=== PATIENT | female | born 1975 | race Caucasian/White ===

== ENCOUNTER 2025-01-16 15:56 | Inpatient (IN) | payer OTHER ==
[2025-01-16 16:30] VITALS: BMI 18.3
[2025-01-16] MEDS ORDERED: BENZONATATE 200 MG CAPSULE PO PRN (17:28)
[2025-01-16] MEDS ORDERED: NICOTINE POLACRILEX 2 MG LOZENGE BC PRN (17:28)
[2025-01-16] MEDS ORDERED: MAGNESIUM HYDROX 2400MG/30ML ORAL SUSPENSION 30 ML CUP PO PRN (17:28)
[2025-01-16] MEDS ORDERED: LOPERAMIDE HCL 2 MG CAPSULE PO PRN (17:28)
[2025-01-16] MEDS ORDERED: NALOXONE (NARCAN) HCL 4 MG/0.1 ML SPRAY NS PRN (17:28)
[2025-01-16] MEDS ORDERED: IBUPROFEN 400 MG TABLET (FP) PO PRN (17:28)
[2025-01-16] MEDS ORDERED: P-EPHED 60MG/TRIPROLIDI 2.5MG TABLET PO PRN (17:28)
[2025-01-16] MEDS ORDERED: BENZOCAINE/MENTHOL (CHLORASEPTIC ) LOZENGE MM PRN (17:28)
[2025-01-16] MEDS ORDERED: POLYETHYLENE GLYCOL (HEALTHYLAX) 3350 17 GM PACKET PO PRN (17:28)
[2025-01-16] MEDS ORDERED: MAG HYDROX/AL HYDROX/SIMETH 30 ML UNIT-DOSE CUP PO PRN (17:28)
[2025-01-16] MEDS ORDERED: IBUPROFEN 600 MG TABLET (FP) PO PRN (17:28)
[2025-01-16] MEDS ORDERED: guaiFENesin 600 MG TABLET.ER (FP) PO PRN (17:28)
[2025-01-16] MEDS ORDERED: MELATONIN 5 MG TABLETS ONE (22:05)
[2025-01-16] MEDS ORDERED: levETIRAcetam 500 MG TABLET (FP) PO ONE (22:05)
[2025-01-16] MEDS: levETIRAcetam 500 MG TABLET (FP) PO SCH (22:12)
[2025-01-16] MEDS: MELATONIN 5 MG TABLETS PO SCH (22:12)
[2025-01-16] MEDS: THIAMINE 100 MG TABLET PO SCH (22:12)
[2025-01-16] MEDS ORDERED: TUBERCULIN PPD 5 TU/0.1ML VIAL ID ONE (22:13)
[2025-01-16] MEDS: hydrOXYzine PAMOATE 25 MG CAPSULE (FP) PO PRN (22:21)
[2025-01-16] MEDS: TUBERCULIN PPD 5 TU/0.1ML SYRINGE (IN PATIENT USE ONLY) ID ONE (22:22)
[2025-01-16] MEDS: NICOTINE POLACRILEX 2 MG GUM BUC PRN (22:22)
[2025-01-17] MEDS ORDERED: TUBERCULIN PPD 5 TU/0.1ML VIAL ID ONE (00:01)
[2025-01-17] MEDS ORDERED: BISMUTH SUBSALICYLATE 524 MG/30 ML PO PRN (08:37)
[2025-01-17] MEDS ORDERED: ONDANSETRON *ODT* 4 MG TABLET SL PRN (08:37)
[2025-01-17] MEDS ORDERED: DICYCLOMINE HCL 10 MG CAPSULE PO PRN (08:37)
[2025-01-17] MEDS: PRENATAL VITAMINS W/ FOLIC ACID TABLET (FP) PO SCH (10:08)
[2025-01-17] MEDS: ACETAMINOPHEN 325 MG TABLET (FP) PO PRN (10:08)
[2025-01-17] MEDS: METHOCARBAMOL 500 MG TABLET PO PRN (10:10)
[2025-01-17] MEDS: SERTRALINE HCL 50 MG TABLET (FP) PO SCH (11:25)
[2025-01-17 12:30] LABS: MCHC 32.0 g/dl (32.2-35.5); MEAN CELL VOLUME 90.2 fl (79.4-94.8); MEAN PLT VOLUME 10.9 fl (9.4-12.3); RDW 13.4 % (12.2-17.1)
[2025-01-17 12:53] LABS: GLUCOSE,RANDOM 81.0 mg/dL (74-106); TOT PROT 6.8 g/dl (6.4-8.2)
[2025-01-17 12:54] LABS: CO2 28.0 mmol/L (21-32)
[2025-01-17 12:56] LABS: ALK PHOS 50.0 U/L (40-150)
[2025-01-17 12:57] LABS: URINE APPEARANCE CLEAR; URINE BILIRUBIN NEGATIVE (NEGATIVE); URINE COLOR YELLOW; URINE GLUCOSE (UA) NEGATIVE (NEGATIVE); URINE KETONE NEGATIVE (NEGATIVE); URINE LEUK ESTERASE NEGATIVE (NEGATIVE); URINE NITRITE NEGATIVE (NEGATIVE); URINE PROTEIN NEGATIVE (NEGATIVE); URINE UROBILINOGEN 0.2 mg/dL (0.2-1.0)
[2025-01-17 12:59] LABS: CREATININE 0.52 mg/dL (0.55-1.3); SGOT/AST 19.0 U/L (5-34); SGPT/ALT 10.0 U/L (0-55)
[2025-01-17 13:01] LABS: SYPHILIS W/ RPR CONF REACTIVE (NONREACTIVE)
[2025-01-17 14:58] LABS: RPR REFLEX NONREACTIVE (NONREACTIVE)
[2025-01-17] MEDS: traZODone HCL 50 MG TABLET (FP) PO SCH (21:41)
[2025-01-17] MEDS: HALOPERIDOL 5 MG TABLET PO SCH (21:41)
[2025-01-17] MEDS: BENZTROPINE MESYLATE 1 MG TABLET PO SCH (21:41)
[2025-01-25 07:14] VITALS: RESP 16; TEMP 97.8
[2025-01-25 09:09] VITALS: BP 106/66; PULSE 75
== END 2025-01-25 10:35 | disposition home or self-care (01) | DRG 772 ==
LOC: YASAS 15:56 → Y5N 21:45
PROVIDERS: ADMIT Neuromusculoskeletal Medicine & OMM; ATTEND Psychiatry & Neurology Pain Medicine
PROC: HZ42ZZZ Group Counseling for Substance Abuse Treatment, Cognitive-Behavioral (ICD-10-PCS; principal; 2025-01-16)
DX: F11.20 Opioid dependence, uncomplicated (principal); F14.20 Cocaine dependence, uncomplicated; F13.20 Sedative, hypnotic or anxiolytic dependence, uncomplicated; F17.210 Nicotine dependence, cigarettes, uncomplicated; F25.1 Schizoaffective disorder, depressive type; F31.9 Bipolar disorder, unspecified; N63.10 Unspecified lump in the right breast, unspecified quadrant; Z85.41 Personal history of malignant neoplasm of cervix uteri
CPT/HCPCS: 36415; 80053; 81003; 85027; 86593; 86780; 93005; 93010